=== PATIENT | female | born 1990 | race Caucasian/White ===

== ENCOUNTER 2016-12-16 15:57 | Emergency (ER) | payer MEDICAID ==
[~2016-12-16] VITALS: Ht 157.5 cm; Wt 61.4 kg
[~2016-12-16 15:57] MED LIST: ALDOMET 250MG250 MG PO; ALDOMET500 MG; BANOPHEN25 M1 PO; BENADRYL25 M2 PO; FLINTSTONES COM1 CT1 PO; MOTRIN 600600 MG/TAB PO; NO HOME MEDICATIONS; PERCOCET 325 MG1 TA2 PO; TYLENOL 325MG325 MG PO; ZANTAC 7575 MG PO
[2016-12-16 16:01] VITALS: TEMP 99.5
[2016-12-16 17:29] LABS: PH 6 (5-8); SQUAMOUS EPITHELIAL 0-2 /hpf; URINE APPEARANCE Cloudy; URINE BACTERIA Rare /hpf; URINE BILIRUBIN Negative (NEGATIVE); URINE BLOOD 2+ (NEGATIVE); URINE COLOR Yellow; URINE GLUCOSE 1+ (NEGATIVE); URINE KETONE Negative (NEGATIVE); URINE UROBILINOGEN Negative (NEGATIVE)
[2016-12-16 17:32] LABS: URINE WBC >50 /hpf
[2016-12-16 17:35] LABS: AMPHETAMINE URINE POSITIVE; BARBITURATES URINE NEGATIVE; BENZODIAZEPINES URINE NEGATIVE; BUPRENORPHINE URINE NEGATIVE; METHADONE URINE NEGATIVE; OPIATES URINE NEGATIVE; OXYCODONE URINE NEGATIVE; PHENCYCLIDINE URINE NEGATIVE; PROPOXYPHENE URINE NEGATIVE; THC CANNABINOIDS URINE NEGATIVE
[2016-12-16 18:29] VITALS: PULSE 94
[2016-12-16] MEDS ORDERED: CIPRO 250MG TA250 MG PO ×2 (18:29→18:34)
[2016-12-16] MEDS ORDERED: ZOFRAN 4MG T4 MG/TAB PO (18:34)
[2016-12-16 18:47] VITALS: BP 112/64
== END 2016-12-16 18:55 | disposition home or self-care (01) ==
LOC: COL.ER 15:57
PROVIDERS: Physician Assistant
DX: R51 Headache (principal); N39.0 Urinary tract infection, site not specified; M54.89 Other dorsalgia; R00.0 Tachycardia, unspecified
CPT/HCPCS: J0696; J1885; J7030

== ENCOUNTER → 2017-07-07 | Outpatient (REF) ==
[~2017-07-07] MED LIST changes: +CIPRO 250MG TA250 MG PO; +ZOFRAN 4MG T4 MG/TAB PO
== END ==
LOC: ZLAB.WCH 08:42
DX: Z01.89 Encounter for other specified special examinations (principal)

== ENCOUNTER → 2017-12-05 | Outpatient (REF) | LOC: ZLAB.WCH 08:43 | DX: Z01.89 Encounter for other specified special examinations (principal) ==

== ENCOUNTER 2019-05-09 08:00 | Emergency (ER) | payer MEDICAID ==
[~2019-05-09] VITALS: Ht 162.6 cm; Wt 62.3 kg
[2019-05-09 08:03] VITALS: BP 136/77
[2019-05-09] MEDS ORDERED: BACTRIM DS 8001 TAB PO (08:55)
[2019-05-09] MEDS ORDERED: CEPHALEXIN500 M1 PO (08:55)
[2019-05-09 09:27] VITALS: PULSE 94; TEMP 97.5
== END 2019-05-09 09:27 | disposition home or self-care (01) ==
LOC: COL.ER 08:00
DX: S20.469A Insect bite (nonvenomous) of unspecified back wall of thorax, initial encounter (principal); L03.312 Cellulitis of back [any part except buttock and flank]; F17.210 Nicotine dependence, cigarettes, uncomplicated; Z88.0 Allergy status to penicillin; W57.XXXA Bitten or stung by nonvenomous insect and other nonvenomous arthropods, initial encounter

== ENCOUNTER 2022-01-20 07:40 | Emergency (ER) | payer MEDICAID ==
[~2022-01-20] VITALS: Ht 160 cm; Wt 66.4 kg
[~2022-01-20 07:40] MED LIST changes: +BACTRIM DS 8001 TAB PO; +CEPHALEXIN500 M1 PO
[2022-01-20 07:58] VITALS: TEMP 97.9
[2022-01-20] MEDS ORDERED: ROBAXIN 50500 MG/TAB PO (09:00)
[2022-01-20] MEDS ORDERED: NAPROSYN500 MG PO (09:00)
[2022-01-20 09:30] VITALS: BP 137/76; PULSE 88
== END 2022-01-20 09:30 | disposition home or self-care (01) ==
LOC: COL.ER 07:40
DX: S20.211A Contusion of right front wall of thorax, initial encounter (principal); F17.210 Nicotine dependence, cigarettes, uncomplicated; Z28.310 Unvaccinated for COVID-19; X50.1XXA Overexertion from prolonged static or awkward postures, initial encounter
CPT/HCPCS: J1885